=== PATIENT | female | born 1940 | race Caucasian/White ===

== ENCOUNTER 2017-04-20 16:55 | Emergency (ER) | payer MEDICARE, OTHER ==
[2017-04-20] MEDS ORDERED: FLUORESCEIN STRIP 1 MG/STRIP STRIP ONE (17:24)
[2017-04-20] MEDS ORDERED: TETRACAINE 0.5% OPHTH 15 ML BOTTLE ONE (17:24)
--- NOTE | 2017-04-20 19:03 | ER NURSING DOCUMENTATION ---
Nurse's Notes [facility] Name:Sonia Tracey Age:76 yrs Sex:Female :1940 Arrival Date:04/20/2017 Time:16:55 Bed2 Private MD: Diagnosis:Corneal Ulcer Presentation: 04/20 17:03 Presenting complaint: Patient states: right eye discomfort. pt states she had cornea bw2 surgery approx 1 year ago. states she is now having discomfort. Transition of care: patient was not received from another setting of care. 17:03 Acuity: CHRISTINE 3 bw2 17:03 Method Of Arrival: Walk In bw2 Triage Assessment: 17:05 General: Appears in no apparent distress, Behavior is anxious. Pain: Complains of pain bw2 in right eye. EENT: Lid(s) drooping on right outer canthus Reports right eye drooping is her normal . Neuro: No deficits noted. Historical: - Allergies: No known drug Allergies; - PMHx: ARTHRITIS; HYPERTENSION; - Tetanus: < 10 years. - Ebola Screening: : Patient negative for fever greater than or equal to 101.5 degrees Fahrenheit, and additional compatible Ebola Virus Disease symptoms. Patient denies exposure to infectious person. Patient denies travel to an Ebola-affected area in the 21 days before illness onset. No symptoms or risks identified at this time. . - Immunization history: Flu Vaccine < 1 year. - Social history: Smoking status: Patient states was never smoker of tobacco. Screenin:15 Infectious Disease Risk None. Abuse screen: Denies threats or abuse. Nutritional bw2 screening: No deficits noted. Assessment: 17:15 See Triage Assessment done by same RN. bw2 Vital Signs: 17:02 BP 162 / 79; Pulse 122; Resp 16; Temp 98.4; Pulse Ox 90% ; Weight 81.65 kg; Height 5 jt ft. 3 in. (160.02 cm); Pain 4/10; 17:21 Resp 97; bw2 19:01 BP 148 / 62; Pulse 80; Resp 18; Pulse Ox 97% on R/A; bw2 17:02 Body Mass Index 31.89 (81.65 kg, 160.02 cm) jt Visual Acuity: 17:15 Left Eye Visual acuity 20/80, ; Right Eye Visual acuity 20/80, ; Both Eyes Visual bw2 acuity 20/60; With Lenses; ED Course: 16:57 Patient arrived in ED. ama 17:03 Liudmila Boyce is Primary Nurse. bw2 17:05 Triage completed. bw2 17:08 Devin Tobar MD is Attending Physician. tl1 17:15 Valuables Remains with patient Bed in low position. bw2 Administered Medications: 17:22 Drug: Tetracaine Drops 0.5 % 1 drops; Route: Ophthalmic; Site: right eye; bw2 17:22 Drug: Fluorescein Strip 1 strip; Route: Ophthalmic; Site: right eye; 2 Outcome: 18:38 Discharge ordered by . tl1 19:01 Discharged to home ambulatory. bw2 19:01 Condition: good 19:01 Discharge Assessment: Patient awake, alert and oriented x 3. No cognitive and/or functional deficits noted. Patient verbalized understanding of disposition instructions. 19:01 Discharge instructions given to patient, significant other, Instructed on discharge instructions, follow up and referral plans. Demonstrated understanding of instructions. 19:02 Patient left the ED. 2 04/21 14:25 Discharge F/U Call: Unable to reach: no answer st Signatures: Susi Moody, RN RN Jayy Gomes, Reg Reg Devin Dallas MD MD tl1 Bhakti Deal Beth 2
--- NOTE | 2017-04-20 19:03 | ER PHYSICIAN DOCUMENTATION ---
Physician Documentation [facility] Name:Sonia Tracey Age:76 yrs Sex:Female :1940 Arrival Date:04/20/2017 Time:16:55 Bed2 Private MD: Devin Muñoz Disposition: 04/21 20:50 Chart complete. tl1 Disposition: 04/20/17 18:38 Discharged to Home/Self Care. Impression: Corneal Ulcer. - Condition is Good. - Discharge Instructions: CORNEAL ULCER. - Medical Reconciliation form form. - Follow up: Private Physician; When: Tomorrow; Reason: Recheck today's complaints. - Problem is new. - Symptoms have improved. - Notes: CONTINUE WITH YOUR VIGAMOX DROPS EVERY [address] YOU SEE DR MEADE TOMORROW. CALL FIRST THING 8 AM TOMORROW. [phone] HPI: 04/20 17:00 This 76 yrs old Female presents to ER via Walk In with complaints of Eye tl1 Problem - RIGHT. 17:00 to the right eye. 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 She is travelling here, from [place]. Today she noted some d/c and decreased vision in her left eye with some left eye redness and discomfort, so she comes here for evaluation. Her vision in the left eye is also decreased, She is s/p right lateral tausoraphy as well.. Historical: - Allergies: No known drug Allergies; - PMHx: ARTHRITIS; HYPERTENSION; - Tetanus: < 10 years. - Ebola Screening: : Patient negative for fever greater than or equal to 101.5 degrees Fahrenheit, and additional compatible Ebola Virus Disease symptoms. Patient denies exposure to infectious person. Patient denies travel to an Ebola-affected area in the 21 days before illness onset. No symptoms or risks identified at this time. . - Immunization history: Flu Vaccine < 1 year. - Social history: Smoking status: Patient states was never smoker of tobacco. ROS: 18:00 Eyes: Positive for blurry vision, discharge, redness. tl1 18:00 All other systems are negative. Exam: 18:00 Visual Acuity: I have reviewed the nursing documentation. tl1 18:00 Constitutional: This is a well developed, well nourished patient who is awake, alert, tl1 and in no acute distress. Head/Face: Normocephalic, atraumatic. ENT: Nares patent. No nasal discharge, no septal abnormalities noted. Tympanic membranes are normal and external auditory canals are clear. Oropharynx with no redness, swelling, or masses, exudates, or evidence of obstruction, uvula midline. Mucous membranes moist. 18:00 Neck: Trachea midline, no thyromegaly or masses palpated, and no cervical lymphadenopathy. Supple, full range of motion without nuchal rigidity, or vertebral point tenderness. No Meningismus. 18:00 Eyes: Periorbital structures: appear normal, Pupils: right pupil is approximately 2 mm(s), left pupil is approximately 2 mm(s), unreactive, Extraocular movements: no acute changes, Conjunctiva: injected, in the right eye, Corneas: right cornea has sutures peripherally and is diffusely and somewhat irregularly cloudy with diffuse fluorescein uptake. Anterior chamber is clear. I cannot measure IOP; we have no tonopen.. Vital Signs: 17:02 BP 162 / 79; Pulse 122; Resp 16; Temp 98.4; Pulse Ox 90% ; Weight 81.65 kg; Height 5 jt ft. 3 in. (160.02 cm); Pain 4/10; 17:21 Resp 97; bw2 19:01 BP 148 / 62; Pulse 80; Resp 18; Pulse Ox 97% on R/A; bw2 17:02 Body Mass Index 31.89 (81.65 kg, 160.02 cm) jt Visual Acuity: 17:15 Left Eye Visual acuity 20/80, ; Right Eye Visual acuity 20/80, ; Both Eyes Visual bw2 acuity 20/60; With Lenses; MDM: 17:08 Patient medically screened. tl1 19:00 Data reviewed: vital signs, nurses notes, and as a result, I will Consult Dr Marti.. tl1 Physician consultation: Marc Marti MD was called at 18:00, was contacted at 19:00, regarding patient's condition, need to come to ED to see patient, need to evaluate the patient as soon as possible, and will see patient in office, shortly. ED course: She was stable. Dr Marti very kindly came to the ED to escort her to his office for a more thorough exam.. Dispensed Medications: 17:22 Drug: Tetracaine Drops 0.5 % 1 drops; Route: Ophthalmic; Site: right eye; 2 17:22 Drug: Fluorescein Strip 1 strip; Route: Ophthalmic; Site: right eye; 2 Signatures: Devin Tobar MD MD tl1 Liudmila Boyce 2
== END 2017-04-20 19:03 | disposition home or self-care (01) ==
LOC: ER 16:55
DX: H16.001 Unspecified corneal ulcer, right eye (principal); Z98.890 Other specified postprocedural states; I10 Essential (primary) hypertension
CPT/HCPCS: 99283